=== PATIENT | female | born 1955 | race Caucasian/White ===

== ENCOUNTER → 2016-07-12 | Outpatient (CLI) | payer BC ==
[2016-07-12 14:51] LABS: HEMATOCRIT 37.6 % (37.0-47.0); HEMOGLOBIN 12.3 g/dL (12.0-16.0); MEAN CORPUSCULAR HEMOGLOBIN 29.8 PG (27-31); MEAN CORPUSCULAR HGB CONC 32.7 g/dL (33-37); MEAN PLATELET VOLUME 11.3 FL (7.4-12.2); RED BLOOD COUNT 4.13 10^6/uL (4.20-5.40)
[2016-07-12 15:28] LABS: PLATELET MORPHOLOGY COMMENT NORMAL MORPHOLOGY (NORM); RBC MORPHOLOGY COMMENT NORMAL MORPHOLOGY (NORM); WBC MORPHOLOGY COMMENT NORMAL MORPHOLOGY (NORM)
[2016-07-12 16:02] LABS: BAND NEUTROPHILS % 0 % (0-10); BASOPHILS % (MANUAL) 0 % (0-1); EOSINOPHILS % (MANUAL) 4 % (0-8); LYMPHOCYTES % (MANUAL) 21 % (10-50); METAMYELOCYTES % 0 %; MONOCYTES % (MANUAL) 9 % (0-12); NEUTROPHILS % (MANUAL) 66 % (50-80)
== END ==
LOC: LAB 10:28
PROVIDERS: ATTEND Physician Assistant Medical
DX: D72.818 Other decreased white blood cell count (principal)
CPT/HCPCS: 85007